=== PATIENT | male | born 1975 | race Caucasian/White ===

== ENCOUNTER 2024-09-30 09:46 | Emergency (ER) | payer OTHER, SELFPAY ==
[2024-09-30 09:48] VITALS: BP 142/85; PULSE 75; RESP 26; TEMP 36.6; O2SAT 98; BMI 35.1
--- NOTE | 2024-09-30 09:48 | EKG12_ITS ---
Test Reason : Blood Pressure : */* mmHG Vent. Rate : 69 BPM Atrial Rate : 69 BPM P-R Int : 142 ms QRS Dur : 106 ms QT Int : 392 ms P-R-T Axes : * 64 24 degrees QTcB Int : 420 ms Normal sinus rhythm Normal ECG Confirmed by CELE HYLTON, ED ([id number]), primer expeditor and drier WILLIAM LAI ([id number]) on 10/01/2024 8:20:19 AM Referred By: DAVIS Confirmed By: ED OAKLEY MD
[2024-09-30] MEDS: HYDROmorphone 1 MG/ML Syringe IV (09:55)
[2024-09-30] MEDS: Ondansetron 4 MG/2 ML Vial IV (09:55)
[2024-09-30] MEDS: 0.9% Normal Saline (1000mL) 1,000 ML 1000 ML IV (09:55)
--- NOTE | 2024-09-30 09:58 | EDS_ITS ---
HPI History of Present Illness Chief Complaint: Flank Pain Informant: patient and EMS Narrative Narrative: 48-year-old male presenting to the emergency room with abdominal back pain. 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 He states he fell around that time believes he had mild injury to the right thigh laterally and medially. States around 5:00 he was getting ready to go when he developed some pain right lower abdomen into the back. 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 He states he feels better more towards his left side. He notes radiation to the right testicle. He notes his urine along the route was progressively darkening but he did not see david hematuria. He denies any swelling of the testicle or penis. He notes he is treated for hypercholesterolemia and is allergic to penicillin. He notes a finger surgery earlier this year but no surgeries on the abdomen. EMS was not able to start an IV. [facility] Medical History (Updated 09/30/24 @ 13:[address] Luis F Arteaga, DO) Hypercholesterolemia Home Medications ?Medication ?Instructions ?Recorded ?Last Taken ?Type ketorolac 10 mg tablet 10 mg PO Q8H PRN pain #15 ta bs 09/30/24 Unknown Rx ondansetron 4 mg disintegrating 4 mg PO Q6H PRN PRN Na usea #15 tabs 09/30/24 Unknown Rx tablet oxycodone-acetaminophen 5 mg-325 1 tab PO Q6H PRN PRN Pain 3 days 09/30/24 Unknown Rx mg tablet #12 TABLETS
--- NOTE | 2024-09-30 09:58 | EX.ED.DYSGE1 ---
HPI History of Present Illness Chief Complaint: Flank Pain Informant: patient and EMS Narrative Narrative: 48-year-old male presenting to the emergency room with abdominal back pain. 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 He states he fell around that time believes he had mild injury to the right thigh laterally and medially. States around 5:00 he was getting ready to go when he developed some pain right lower abdomen into the back. 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 He states he feels better more towards his left side. He notes radiation to the right testicle. He notes his urine along the route was progressively darkening but he did not see david hematuria. He denies any swelling of the testicle or penis. He notes he is treated for hypercholesterolemia and is allergic to penicillin. He notes a finger surgery earlier this year but no surgeries on the abdomen. EMS was not able to start an IV. [facility] Medical History (Updated 09/30/24 @ 13:[address] Luis F Arteaga, ) Hypercholesterolemia Home Medications ?Medication ?Instructions ?Recorded ?Last Taken ?Type ketorolac 10 mg tablet 10 mg PO Q8H PRN pain #15 tabs 09/30/24 Unknown Rx ondansetron 4 mg disintegrating 4 mg PO Q6H PRN PRN Nausea #15 tabs 09/30/24 Unknown Rx tablet oxycodone-acetaminophen 5 mg-325 1 tab PO Q6H PRN PRN Pain 3 days 09/30/24 Unknown Rx mg tablet #12 TABLETS Allergy/AdvReac Type Severity Reaction Status Date / Time bee venom protein (honey Allergy Intermediate Anaphylaxis Verified 09/30/24 09:50 bee) (bees) Penicillins Allergy Intermediate Anaphylaxis Verified 09/30/24 09:50 Social History (Updated 09/30/24 @ 11:12 by Johana Guevara) household members: family current occupational status: employed Smoking Status: Never smoker ROS ROS ED Constitutional Constitutional ED: Denies chills, fever(s) or weight loss Eyes Eyes: Denies change in vision or diplopia ENT ENT ED: Denies ear pain, rhinorrhea or sore throat Cardiovascular Cardiovascular: Denies chest pain, orthopnea, palpitations or racing heartbeat Respiratory/Chest Respiratory/Chest: Denies cough, dyspnea or orthopnea Gastrointestinal Gastrointestinal: Reports abdominal pain; Denies diarrhea, nausea or vomiting Genitourinary Genitourinary ED: Reports other Details: Right testicular pain ; Denies dysuria, hematuria or urinary frequency Musculoskeletal Musculoskeletal: Reports back pain; Denies arthralgias or myalgias Integumentary Denies abscess or rash Neurologic Neurologic: Denies headache(s) or weakness Psychiatric Psychiatric: Denies anxiety, depression, suicidal ideation or suicidal thoughts Endocrine Endocrinology: Denies polydipsia, polyphagia or polyuria Allergic/Immunologic Allergic/Immunologic ED: Denies mouth swelling, tongue swelling or urticaria EXAM Physical Exam Narrative Exam Narrative: Patient is writhing on the bed. He is tachypneic but states it is more due to pain. Const Vital Signs: 09/30/24 09:48 09/30/24 10:47 09/30/24 11:00 Temperature 98 F Temperature Source Temporal Pulse Rate 75 78 68 Respiratory Rate 26 H 17 19 H Blood Pressure 142/85 H 158/77 H Blood Pressure Mean 104 104 Pulse Ox 98 99 99 Oxygen Delivery Method Room Air 09/30/24 12:00 09/30/24 13:00 09/30/24 13:52 Temperature 98.3 F Temperature Source Pulse Rate 78 78 78 Respiratory Rate 19 H 17 17 Blood Pressure 138/89 H 128/89 H 128/89 H Blood Pressure Mean 105 102 102 Pulse Ox 98 98 98 Oxygen Delivery Method Positive well nourished and well developed General Appearance ED: well developed and NAD HEENT Reports normocephalic, head/scalp atraumatic and moist mucous membranes Eyes PERRL and EOMs intact bilaterally Neck no lymphadenopathy, supple and no JVD Resp clear to auscultation bilaterally Resp Narrative: Tachypneic Cardio regular rate, regular rhythm and no murmurs GI normal to inspection, nondistended, normoactive bowel sounds and non-tender Palpation: soft Back/Spine no CVA tenderness and normal ROM Extremity normal to inspection General Extremety ED: Negative for edema General Extremity: Negative for edema Neuro oriented x3 and CN's II-XII intact bilaterally Sensorium / Orientation: alert Motor Exam: strength 5/5 throughout Psych mental status grossly normal Mood & Affect: Negative for depressed or tearful Skin no rashes or lesions noted and no wounds MDM MDM MDM Narrative Medical decision making narrative: Differential diagnosis includes but not limited to hip contusion pelvic fracture retroperitoneal hematoma kidney stone diverticulitis appendicitis psoas muscle spasm back spasm back fracture Patient received pain and nausea medication. White count returns nonspecifically elevated 11.5 hemoglobin 14.9 platelet count 226. Creatinine level is 1.19. His CO2 was 15.2 but he was noted to be hyperventilating when he came in in addition to there being falsely reported low CO2 levels recently on the lab analyzer. I do not believe he is truly acidotic. Liver enzymes and lipase are normal. Urinalysis demonstrated 10-25 red cells but no overt infection. CT then pelvis demonstrates a very distal 3 mm kidney stone possibly already into the bladder. Patient is doing better. He will be discharged home with pain and nausea medication. Instructions to follow-up as needed I advised him not to return to driving if he is on pain medication. History & Record Review Discussion w/independent historian: Patient and Family Lab Data Attestation: I reviewed the patient's lab results. Labs: Laboratory Results - last 24 hr 09/30/24 09/30/24 10:00 11:18 WBC 11.5 H RBC 5.13 Hgb 14.9 Hct 42.3 MCV 82.5 MCH 29.0 MCHC 35.2 RDW Std Deviation 36.6 RDW Coeff of She 12.0 Plt Count 226 MPV 11.0 Immature Gran % (Auto) 0.300 Neut % (Auto) 86.1 H Lymph % (Auto) 7.7 L [place] % (Auto) 5.5 Eos % (Auto) 0.2 Baso % (Auto) 0.2 Absolute Neuts (auto) 9.9 H Absolute Lymphs (auto) 0.89 Nucleated RBC % 0 Sodium 136 Potassium 4.6 Chloride 103 Carbon Dioxide 15.2 L Anion Gap 18 H BUN 22 H Creatinine 1.19 Estim Creat Clear Calc 96.46 Est GFR (MDRD) Non-Af 75 BUN/Creatinine Ratio 18.2 Glucose 182 H Calcium 10.1 Total Bilirubin 0.68 Direct Bilirubin 0.28 AST 33 ALT 46 Alkaline Phosphatase 46 Total Protein 7.7 Albumin 4.9 Globulin 2.8 Lipase 25 Urine Color Yellow Urine Clarity Clear Urine pH 6.0 Ur Specific [place] 1.015 Urine Protein 30 H Urine Glucose (UA) Normal Urine Ketones 50 H Urine Occult Blood 250 H Urine Nitrite Negative Urine Bilirubin Negative Urine Urobilinogen Normal Ur Leukocyte Esterase 25 H Urine RBC 10-25 SEEN Urine WBC 0 SEEN Ur Squamous Epith Cells 0 SEEN Urine Bacteria 0 SEEN Urine Mucus 0 SEEN Radiography Diagnostic Testing: Clinical Impression(s) from Imaging Studies Abdomen/Pelvis CT 09/30/24 10:05 IMPRESSION: 1. 3 mm obstructing calculus of the right UVJ resulting in mild hydroureteronephrosis. 2. Small esophageal hiatal hernia. 3. Hepatomegaly with fatty infiltration. 4. Fecal retention in the colon consistent with constipation. 5. Umbilical hernia containing fat. 6. Colonic diverticulosis without acute diverticulitis. Reading Location: [facility] EKG Initial EKG: Attestation: I personally reviewed and interpreted this EKG as follows: Comments: Normal sinus rhythm ventricular rate 69 bpm. Discharge Plan Triage Chief Complaint: Flank Pain ED Provider: Luis F Arteaga Dx/Rx/DC Orders Clinical Impression: Abdominal pain, acute, Ureterolithiasis, Fall, Hip pain, right Instructions: ED Hip Contusion, ED Kidney Stone with Pain Prescriptions: New ketorolac 10 mg tablet 10 mg PO Q8H PRN (Reason: pain) Qty: 15 0RF Rx Instructions: maximum total duration of 5 days from all oral, intranasal, or parenteral formulations oxycodone-acetaminophen 5-325 mg tablet 1 tab PO Q6H PRN PRN (Reason: Pain) 3 Days Qty: 12 0RF ondansetron 4 mg tablet,disintegrating 4 mg PO Q6H PRN PRN (Reason: Nausea) Qty: 15 0RF Primary Care Provider: Care Physician,No Primary Referrals: Town Doctor,Out of [Non-Staff] - Activity Restrictions/Additional Instructions: If you are worsening or not improving please return to emergency. I have written you for pain medication as we discussed. Print Language: Kazakh Disposition Disposition: Home, Self Care Discharge Date/Time: 09/30/24 13:53
--- NOTE | 2024-09-30 10:05 | CT_ITS ---
EXAM: CT Abdomen and Pelvis With Intravenous Contrast CLINICAL INDICATION: RIGHT FLANK PAIN TECHNIQUE: Axial computed tomography images of the abdomen and pelvis with intravenous contrast. This CT exam was performed using one or more of the following dose reduction techniques: automated exposure control, adjustment of the mA and/or kV according to patient size, and/or use of iterative reconstruction technique. COMPARISON: No relevant prior studies available. FINDINGS: LUNG BASES: Unremarkable. No mass. No consolidation. MEDIASTINUM: Small esophageal hiatal hernia. ABDOMEN: LIVER: Hepatomegaly with fatty infiltration. GALLBLADDER AND BILE DUCTS: Unremarkable. No calcified stones. No ductal dilation. PANCREAS: Unremarkable. No mass. No ductal dilation. SPLEEN: Unremarkable. No splenomegaly. ADRENALS: Unremarkable. No mass. KIDNEYS AND URETERS: 3 mm obstructing calculus of the right UVJ resulting in mild hydroureteronephrosis. Left nephrolithiasis without hydronephrosis. STOMACH AND BOWEL: Fecal retention in the colon consistent with constipation. Colonic diverticulosis without acute diverticulitis. No obstruction. PELVIS: APPENDIX: No findings to suggest acute appendicitis. BLADDER: Unremarkable. No mass. REPRODUCTIVE: Unremarkable as visualized. ABDOMEN and PELVIS: INTRAPERITONEAL SPACE: Unremarkable. No free air. No significant fluid collection. BONES/JOINTS: No acute fracture. No dislocation. SOFT TISSUES: Umbilical hernia containing fat. VASCULATURE: Unremarkable. No abdominal aortic aneurysm. LYMPH NODES: Unremarkable. No enlarged lymph nodes. CT/Abdomen/Pelvis W IV Cont ONLY IMPRESSION: 1. 3 mm obstructing calculus of the right UVJ resulting in mild hydroureterone phrosis. 2. Small esophageal hiatal hernia. 3. Hepatomegaly with fatty infiltration. 4. Fecal retention in the colon consistent with constipation. 5. Umbilical hernia containing fat. 6. Colonic diverticulosis without acute diverticulitis. Reading Location: [facility]
[2024-09-30 10:10] LABS: Absolute Lymphocyte Count 0.89 X10^3/uL (0.83-4.51); Absolute Neutrophil Count 9.9 X10^3/uL (2.0-7.7); Basophil# 0.02 X10^3/uL; Basophil% 0.2 % (0-1); Eosinophil# 0.02 X10^3/uL; Eosinophils% 0.2 % (0-5); Hematocrit 42.3 % (40-54); Hemoglobin 14.9 g/dL (13.0-16.5); Lymphocyte # 0.89 X10^3/ul (0.83-4.51); Lymphocyte % 7.7 % (19-41); Mean Corp Hgb Conc 35.2 g/dL (32-36); Mean Corpuscular Volume 82.5 fL (80-94); Monocyte# 0.63 X10^3/uL; Monocyte% 5.5 % (0-10); NRBC Flagged by Analyzer 0 % (0-5); Neutrophil % 86.1 % (47-70); Platelet Count 226 K/mm3 (150-450); RBC Distribution Width SD 36.6 fl (35.1-43.9); Red Blood Count 5.13 M/mm3 (4.6-6.2); White Blood Count 11.5 K/mm3 (4.4-11.0)
[2024-09-30] MEDS: Lorazepam 2 MG/ML WCH Syringe 1 MG IV (10:36)
[2024-09-30 10:47] VITALS: PULSE 78; RESP 17; O2SAT 99
[2024-09-30 11:00] VITALS: BP 158/77; PULSE 68; RESP 19; O2SAT 99
[2024-09-30 11:00] LABS: Lipase 25 U/L (13-75)
[2024-09-30 11:09] LABS: AST(SGOT) 33 U/L (<=37); Alanine Aminotransfer ALT/SGPT 46 U/L (<=46); Albumin, Serum 4.9 g/dL (3.5-5.0); Alkaline Phosphatase 46 U/L (40-129); Anion Gap 18 (5-15); BUN 22 mg/dL (4-19); BUN/Creat Ratio 18.2 RATIO (10-20); Bilirubin, Direct 0.28 mg/dL (0.00-0.30); Calcium,Total 10.1 mg/dL (7.6-11.0); Carbon Dioxide 15.2 mmol/L (21.0-32.0); Chloride 103 mmol/L (98-108); Creatinine, Serum 1.19 mg/dL (0.70-1.20); EST Glomerular Filtration Rate 75 (>60); Estimated Creatinine Clearance 96.46 ml/min (50-250); Globulin 2.8 g/dL (2.2-4.2); Glucose 182 mg/dL (70-99); Potassium 4.6 mmol/L (3.3-5.1); Protein, Total 7.7 g/dL (5.9-8.4); Sodium Level 136 mmol/L (133-145); Total Bilirubin 0.68 mg/dL (0.00-1.30)
[2024-09-30 11:21] LABS: Bacteria 0 SEEN /hpf (None Seen); Mucous, Urine 0 SEEN /hpf (<or=2+); Squamous Epithelial Cells - UA 0 SEEN /hpf (0-5); White Blood Cells 0 SEEN /hpf (0-5)
[2024-09-30 11:31] LABS: Color, Urine Yellow (Yellow); Glucose, Dipstick Normal (Normal); Ketone-Dipstick 50 mg/dl (Negative); Leukocyte Esterase-Dipstick 25 /ul (Negative); Nitrite-Dipstick Negative (Negative); Occult Blood-Urine 250 /ul (Negative); Protein-Dipstick 30 mg/dl (Negative); Specific Gravity, Urine 1.015 (1.002-1.030); Urine Bilirubin Dipstick Negative (Negative); Urine Clarity Clear (Clear); Urine Urobilinogen Normal (Normal)
[2024-09-30 11:36] LABS: Red Blood Cells-Urine 10-25 SEEN /hpf (0-5)
[2024-09-30] MEDS: Ketorolac 30 MG/ML Syringe IV (11:47)
[2024-09-30 12:00] VITALS: BP 138/89; PULSE 78; RESP 19; O2SAT 98
--- NOTE | 2024-09-30 12:08 | PCA ---
CALLED DAYAMI FROM [facility], AT 1206, SHE WILL BE HER SOON FOR THE DRUG SCREEN.
--- NOTE | 2024-09-30 12:32 | ED.RN ---
[place]. care here for drug testing. Spoke with safety investigator/cause analyst at [facility].
[2024-09-30 13:00] VITALS: BP 128/89; PULSE 78; RESP 17; O2SAT 98
[2024-09-30 13:52] VITALS: BP 128/89; PULSE 78; RESP 17; TEMP 36.8; O2SAT 98
== END 2024-09-30 13:53 | disposition home or self-care (01) ==
PROVIDERS: Emergency Provider Emergency Medicine; Visit Provider Emergency Medicine
DX: R10.9 Unspecified abdominal pain (principal); N13.2 Hydronephrosis with renal and ureteral calculous obstruction; R06.4 Hyperventilation; E78.00 Pure hypercholesterolemia, unspecified; M54.9 Dorsalgia, unspecified; M25.551 Pain in right hip; W19.XXXA Unspecified fall, initial encounter; Z88.0 Allergy status to penicillin
CPT/HCPCS: 74177; 80048; 80076; 81001; 83690; 85025; 93005; 96361; 96374; 96375; 99285; Q9967; A4216; J2405